=== PATIENT | male | born 1985 | race Caucasian/White ===

== ENCOUNTER → 2018-10-11 | Outpatient (CLI) | payer OTHER ==
--- NOTE | 2018-10-11 18:33 | PCVCIMAG ---
APPROVED REPORT Study performed: 10/11/2018 16:04:25 Exam: Stress Echocardiogram Indication: Chest pain , Dyspnea, palps, near syncope Patient Location: Echo lab Stress Nurse: Evie Reyes RN Status: routine Ht: 6 ft 7 in HR: 88 bpm BP: 126/84 mmHg Rhythm: NSR Procedure The patient underwent an Exercise Stress Test using the Kin Protocol. Blood pressure, heart rate, and EKG were monitored. An Echocardiogram was performed by master motorcycle technician in four stages in quad fashion. At peak stress, four selected images were obtained and placed side by side with resting images for comparison. Stress Test Details Stress Test: Exercise stress testing was performed using a Kin protocol. HR Resting HR: 88 bpmMax Heart Rate (APMHR): 186 bpm Max HR Achieved: 181 bpmTarget HR (85% APMHR): 158 bpm % of APMHR: 97 Recovery HR: 121 bpm HR response to stress: Normal HR response to stress BP Resting BP: 126/84 mmHg Max BP: 186/90 mmHg Recovery BP: 150/90 mmHg BP response to stress: Normal blood pressure response to stress. ECG Resting ECG: Sinus Rhythm, nonspecific ST-T abnormalities Stress ECG: Sinus Rhythm ST Change: Nonspecific resting ST abnormalities Arrhythmia: occasional PVC Recovery ECG: Sinus Rhythm, nonspecific ST-T abnormalities Recovery ST Change: Nondiagnostic resting ST abnormalities Recovery Arrhythmia: None Clinical Reason for Termination: Maximal effort Stress Symptoms: Dyspnea Exercise duration: 10 min 49 sec Highest Stage Achieved: Stage 4: 4.2 mph at 16% grade. Exercise capacity: 13.7 METs Overall Exercise Capacity for Age: Normal Scale: Active Angina Score: None Pre-Stress Echo The resting Echocardiogram showed normal left ventricular contractility with an estimated Ejection Fraction of about >55%. Normal wall motion in all segments on baseline images. Post-Stress Echo The stress Echocardiogram showed normal left ventricular contractility with an estimated Ejection Fraction of about 65%. Normal augmentation of wall motion in all segments on post stress images. Clinical No clinical or ECG evidence for ischemia. Conclusion Clinical Response: Non-ischemic Exercise Capacity: Average Stress ECG Response: Non-ischemic Stress Echo Images: Non-ischemic The left ventricle is normal in size and wall thickness in both the rest and stress images. Other Information Study Quality: Adequate <Conclusion> The left ventricle is normal in size and wall thickness in both the rest and stress images.
== END | disposition home or self-care (01) ==
LOC: PCVCIMAG 15:44
PROVIDERS: ATTEND Internal Medicine Cardiovascular Disease
DX: R07.9 Chest pain, unspecified (principal); R06.00 Dyspnea, unspecified; R55 Syncope and collapse; R00.2 Palpitations; R42 Dizziness and giddiness; E78.5 Hyperlipidemia, unspecified; R06.02 Shortness of breath; F17.200 Nicotine dependence, unspecified, uncomplicated; Z72.89 Other problems related to lifestyle
CPT/HCPCS: 93325; 93351